=== PATIENT | female | born 1930 | race Caucasian/White ===

== ENCOUNTER 2018-05-13 09:21 | Outpatient (CLI) | payer OTHER ==
[~2018-05-13 09:21] MED LIST: ATACAND4 MG PO; CLONAZEPAM0.5 MG PO; FOLIC + B12 TAB1 TAB PO; LIPITOR40 MG PO; MECLIZINE HCL12.5 MG PO; NEXIUM40 MG/PACK PO; PLAVIX75 MG PO
== END 2018-05-13 09:36 | disposition home or self-care (01) ==
LOC: LAB 09:21
DX: D64.89 Other specified anemias (principal); M06.4 Inflammatory polyarthropathy; M10.9 Gout, unspecified

== ENCOUNTER 2018-05-13 13:26 | Outpatient (CLI) | payer OTHER | END 2018-05-13 13:39 | disposition home or self-care (01) | LOC: NUCLEAR 13:26 | DX: M81.0 Age-related osteoporosis without current pathological fracture (principal) ==

== ENCOUNTER 2018-06-21 10:45 | Outpatient (CLI) | payer OTHER | END 2018-06-21 10:58 | disposition home or self-care (01) | LOC: RAD 10:45 | DX: M79.672 Pain in left foot (principal); M76.822 Posterior tibial tendinitis, left leg; M25.572 Pain in left ankle and joints of left foot ==

== ENCOUNTER 2020-06-17 12:42 | Outpatient (CLI) | payer OTHER | END 2020-06-17 12:55 | disposition home or self-care (01) | LOC: NUCLEAR 12:42 | PROVIDERS: ATTEND Orthopaedic Surgery | DX: M81.0 Age-related osteoporosis without current pathological fracture (principal) ==

== ENCOUNTER 2021-10-29 11:16 | Outpatient (CLI) | payer OTHER | END 2021-10-29 11:25 | disposition home or self-care (01) | LOC: RAD 11:16 | PROVIDERS: ATTEND Orthopaedic Surgery | DX: M17.0 Bilateral primary osteoarthritis of knee (principal) ==

== ENCOUNTER 2021-12-01 07:50 | Outpatient (CLI) | payer OTHER | END 2021-12-01 07:51 | disposition home or self-care (01) | LOC: LAB 07:50 | PROVIDERS: ATTEND Orthopaedic Surgery | DX: I10 Essential (primary) hypertension (principal); Z76.89 Persons encountering health services in other specified circumstances; D64.9 Anemia, unspecified; E88.9 Metabolic disorder, unspecified; D68.8 Other specified coagulation defects; N39.0 Urinary tract infection, site not specified; A49.02 Methicillin resistant Staphylococcus aureus infection, unspecified site; E11.9 Type 2 diabetes mellitus without complications ==

== ENCOUNTER 2022-04-15 08:00 | Inpatient (IN) | payer OTHER ==
[~2022-04-15] VITALS: Ht 162.6 cm; Wt 68.9 kg
[~2022-04-15 08:00] MED LIST changes: +GLUMETZA500 MG PO; +KEPPRA500 MG PO; +LASIX20 MG PO; +LEVOTHYROXINE25 MCG PO; +VALSARTAN80 MG PO
== END 2022-04-23 22:51 | disposition home or self-care (01) | DRG 470 ==
LOC: O/R 04-21 05:39 → SURG 04-21 07:30 → SURH 04-21 11:58 → SURG 04-21 14:00 → SURH 04-23 22:51
PROVIDERS: ADMIT Orthopaedic Surgery; ATTEND Orthopaedic Surgery
PROC: 0SRD0J9 Replacement of Left Knee Joint with Synthetic Substitute, Cemented, Open Approach (ICD-10-PCS; principal; 2022-04-21 14:00)
DX: M17.12 Unilateral primary osteoarthritis, left knee (principal); I10 Essential (primary) hypertension; E03.9 Hypothyroidism, unspecified; E11.9 Type 2 diabetes mellitus without complications; Z20.822 Contact with and (suspected) exposure to COVID-19

== ENCOUNTER 2022-06-12 08:03 | Outpatient (CLI) | payer OTHER | END 2022-06-12 08:05 | disposition home or self-care (01) | LOC: LAB 08:03 | PROVIDERS: ATTEND Orthopaedic Surgery | DX: M06.4 Inflammatory polyarthropathy (principal); E11.9 Type 2 diabetes mellitus without complications ==

== ENCOUNTER 2022-06-12 09:36 | Outpatient (CLI) | payer OTHER | END 2022-06-12 09:38 | disposition home or self-care (01) | LOC: NUCLEAR 09:36 | PROVIDERS: ATTEND Orthopaedic Surgery | DX: I87.2 Venous insufficiency (chronic) (peripheral) (principal); Z96.652 Presence of left artificial knee joint ==